=== PATIENT | female | born 1980 | race Caucasian/White ===

== ENCOUNTER 2021-01-23 08:20 | Day surgery (SDC) | payer OTHER ==
[2021-01-20 13:51] VITALS: BMI 28.3
[~2021-01-23 08:20] MED LIST: LACTATED RINGERS 1,000 ML IV SCH
[2021-01-23 08:45] VITALS: RESP 16; TEMP 98
[2021-01-23 08:46] LABS: Glucose,Whole Blood 101 mg/dL (75-99)
[2021-01-23] MEDS ORDERED: PROPOFOL 10 MG/ML 20 ML VIAL IV ONE (08:46)
--- NOTE | 2021-01-23 08:51 | P.GSHP ---
History of Present Illness H&P Date: 01/23/21 Chief Complaint: Epigastric pain Is a 40-year-old female referred from [facility] patient has had complaints of epigastric pain. She presents today for EGD Past Medical History Past Medical History: GERD/Reflux, Osteoarthritis (OA) Additional Past Medical History / Comment(s): MIGRAINE HEADACHES , ABDOMINAL PAIN, NAUSEA , " PATIENT STATES ON RX TO REGULATE HER INSULIN" History of Any Multi-Drug Resistant Organisms: None Reported Past Surgical History: Hysterectomy, Tubal Ligation Additional Past Surgical History / Comment(s): SURGERY ON ABDOMEN - UNKOWN TYPE ,JAW SURGERY , LEFT ARM X2 -FRACTURE Past Anesthesia/Blood Transfusion Reactions: Motion Sickness Smoking Status: Never smoker - Past Family History Mother Family Medical History: Cancer Additional Family Medical History / Comment(s): COLON,RECTAL,LIVER CANCER Medications and Allergies Home Medications Medication Instructions Recorded Confirmed Type ALPRAZolam [Xanax] 0.25 mg PO BID PRN 01/20/21 01/20/21 History Ergocalciferol [Vitamin D2 (1250 1,250 mcg PO SA 01/20/21 01/20/21 History Mcg = [id number] Iu)] Phentermine HCl [Adipex P] 15 mg PO AC-BRKFST 01/20/21 01/20/21 History SUMAtriptan SUCCINATE [Imitrex] 50 - 100 mg PO DAILY PRN 01/20/21 01/20/21 History Topiramate [Topamax] 25 mg PO BID 01/20/21 01/20/21 History metFORMIN HCL [Glucophage] 500 mg PO DAILY 01/20/21 01/20/21 History Omeprazole [PriLOSEC] 20 mg PO AC-BRKFST 01/23/21 01/23/21 History Allergies Allergy/AdvReac Type Severity Reaction Status Date / Time cephalexin [From Keflex] Allergy Rash/Hives Verified 01/23/21 08:34 Surgical - Exam Vital Signs Temp Pulse Resp BP Pulse Ox 98.0 F 72 16 139/95 96 01/23/21 08:44 01/23/21 08:44 01/23/21 08:44 01/23/21 08:44 01/23/21 08:44 - General well developed, well nourished, no distress - Eyes PERRL - ENT normal pinna - Neck no masses - Respiratory normal expansion - Cardiovascular Rhythm: regular - Abdomen Abdomen: soft, non tender Results - Labs Abnormal Lab Results - Last 24 Hours (Table) 01/23/21 Range/Units 08:44 POC Glucose (mg/dL) 101 H (75-99) mg/dL Assessment and Plan Assessment: Epigastric pain. We'll perform EGD.
--- NOTE | 2021-01-23 08:56 | P.OP ---
Date of Procedure: 01/23/21 Preoperative Diagnosis: Epigastric pain Postoperative Diagnosis: Antral gastritis Mild esophagitis Procedure(s) Performed: EGD Anesthesia: MAC Surgeon: Nehemiah Solomon Pathology: other (Antrum, esophagus) Condition: stable Disposition: PACU Description of Procedure: The patient's placed on the endoscopy table in the lateral position. She received IV sedation. The gastroscope placed oropharynx passed in the esophagus and the stomach. Scope was placed through the pylorus. The first and second portion of duodenum appeared normal. Scope was then brought back the antrum this. Mildly inflamed. A biopsies performed. There is retained food in the stomach. Scope was unretroflexed meters some appeared normal. There is no significant hiatal hernia. The GE junction was at 40 cm. The distal esophagus appeared mildly inflamed a biopsies performed. The proximal esophagus appeared normal. Scope was withdrawn for patient.
[2021-01-23 09:46] VITALS: BP 123/83; PULSE 67
--- NOTE | 2021-01-23 12:56 | NM ---
Nuclear medicine hepatobiliary scan. HISTORY: Pain. DOSAGE: The patient received 1.4 micrograms of CCK and 5.1 mCi of Technetium 99m Choletec. FINDINGS: There is normal hepatic extraction. The gallbladder is seen by 20 minutes. Ejection frac tion is 69%. IMPRESSION: 1. Normal hepatobiliary exam
== END 2021-01-23 09:51 | disposition home or self-care (01) ==
LOC: ORWHC2ENDO 08:20
PROVIDERS: ATTEND Surgery
DX: K29.50 Unspecified chronic gastritis without bleeding (principal); K21.00 Gastro-esophageal reflux disease with esophagitis, without bleeding; M19.90 Unspecified osteoarthritis, unspecified site; G43.909 Migraine, unspecified, not intractable, without status migrainosus; Z90.710 Acquired absence of both cervix and uterus; Z98.51 Tubal ligation status; Z98.890 Other specified postprocedural states; Z87.81 Personal history of (healed) traumatic fracture; Z87.898 Personal history of other specified conditions; Z79.899 Other long term (current) drug therapy; Z79.84 Long term (current) use of oral hypoglycemic drugs; Z88.1 Allergy status to other antibiotic agents; Z80.0 Family history of malignant neoplasm of digestive organs
CPT/HCPCS: 88305; 88342; 78227; 43239; A9537; J2704